=== PATIENT | male | born 1975 | race Caucasian/White ===

== ENCOUNTER 2024-09-18 10:58 | Emergency (ER) | payer BC ==
[2024-09-18] MEDS: Dexamethasone 4 MG Tab PO ONE (11:36)
[2024-09-18] MEDS: Acetaminophen 500 MG Tab PO ONE (11:36)
[2024-09-18] MEDS: Ketorolac 30 MG/ML SDV IM ONE (11:36)
== END 2024-09-18 12:49 | disposition home or self-care (01) ==
LOC: MW.ED 10:58
DX: M19.012 Primary osteoarthritis, left shoulder (principal); M89.8X1 Other specified disorders of bone, shoulder; Z79.899 Other long term (current) drug therapy
CPT/HCPCS: 73030; 96372; 99283; A9270; J1885; J8540

== ENCOUNTER 2024-11-23 18:25 | Emergency (ER) | payer SELFPAY | END 2024-11-23 20:09 | disposition home or self-care (01) | LOC: MW.ED 18:25 | DX: S00.83XA Contusion of other part of head, initial encounter (principal); Z79.899 Other long term (current) drug therapy; W22.8XXA Striking against or struck by other objects, initial encounter; Y93.89 Activity, other specified | CPT/HCPCS: 70450; 70486; 96372; 99283; J2270 ==